=== PATIENT | female | born 1990 | race African-American/Black ===

== ENCOUNTER 2020-06-12 11:20 | Emergency (ER) | payer OTHER, SELFPAY ==
--- NOTE | ~2020-06-12 | CT_ITS ---
EXAMINATION: CT abdomen pelvis wo con DATE: 06/12/2020 12:32 INDICATION: Left flank pain. TECHNIQUE: Computed tomography (CT) of the abdomen and pelvis was performed without intravenous contr ast. Automated exposure control and iterative reconstruction technique were employed. The dose-length product was 297.12 mGy-cm. COMPARISON: None. FINDINGS: The visualized portions of the lung bases are clear without pneumonia or pleural effusion. The heart size is normal. No pericardial effusion. The liver, gallbladder, spleen, pancreas, adrenal glands, and left kidney are normal. There is a 1.7 cm cyst in right kidney. There is no urolithiasis. There are no dilated loops of bowel. The appendix is normal. There are no pathologically enlarged ly mph nodes. There is no free intraperitoneal fluid. There is thoracic dextroscoliosis and lumbar levos coliosis. There is mild thoracolumbar spondylosis. IMPRESSION: 1. No etiology for the patient's symptoms. Reviewed, dictated and finalized at location A.
[2020-06-12 11:26] VITALS: BP 121/80; PULSE 120; RESP 16; TEMP 37.1; O2SAT 94
--- NOTE | 2020-06-12 11:28 | ED.BACK ---
HPI - Back Pain/Injury General Chief Complaint: Back Pain/Injury Stated Complaint: side and back pain Time Seen by Provider: 06/12/20 11:27 Source: patient Mode of arrival: ambulatory Limitations: no limitations History of Present Illness HPI Narrative: Patient is a 30-year-old previously healthy female who presents for evaluation of back and side pain over the past 5 days. Patient reports intermittent pain that does appear worse with movement but she denies any inciting injury. Pain is sharp, stabbing in nature that originates at the left flank and radiates to the left lower abdomen. She denies any pelvic pain. She reports she is currently menstruating. She denies any other vaginal discharge. She does not believe she is and is on the Depo-Provera shot. She denies any history of kidney stones. She reports some nausea, denies fever or chills. She denies dysuria. Of note, patient does do daily heavy lifting on her place of work. Related Data Home Medications Medication Instructions Recorded Confirmed Depo-Provera Contraceptive 06/12/20 Allergies Allergy/AdvReac Type Severity Reaction Status Date / Time No Known Drug Allergies Allergy Other Verified 06/12/20 11:33 Review of Systems Review of Systems: Narrative: CONSTITUTIONAL: Denies fever, chills, or sweats. CARDIOVASCULAR: Denies chest pain, palpitations, or edema. RESPIRATORY: Denies cough or dyspnea. GASTROINTESTINAL: Reports left-sided abdominal pain, nausea GENITOURINARY: Denies dysuria, reports hematuria, currently menstruating SKIN: Denies rash or itching. MUSCULOSKELETAL: Denies back pain, joint pain, or myalgia. NEUROLOGIC: Denies headache, numbness, or weakness. [facility]LY [facility] Past Medical History Medical History (Updated 06/12/20 @ 13:33 by Anisa Nelson MD) No pertinent past medical history Surgical History Surgical History (Updated 06/12/20 @ 11:41 by Anisa Nelson MD) No pertinent past surgical history Social History Social History (Updated 06/12/20 @ 11:42 by Anisa Nelson MD) Smoking status: Current every day smoker Tobacco type: cigarettes Alcohol intake: current Alcohol use details: Social, rarely Substance use: never Gender identity (if verbalized by the patient): Female Exam Narrative: Exam Narrative: GENERAL: Awake, alert, conversant HEAD: Normocephalic, atraumatic. EYES: PERRLA and EOMI. ENT: Nares clear, no rhinorrhea or epistaxis. Mucous membranes moist. NECK: Supple. CHEST: No respiratory distress, breathing even and non labored HEART: Regular rate, sinus rhythm ABDOMEN:Non distended, tender in the left upper quadrant, left flank tenderness, mildly reproduces pain, no midline lumbar tenderness, no thoracic tenderness EXTREMITIES: Normal range of motion. No edema. SKIN: Warm, dry, no rash. NEURO:No focal deficits. Alert and oriented x3 Course Vital Signs Vital signs: Vital Signs Temperature 37.1 C 06/12/20 11:26 Pulse Rate 120 H 06/12/20 11:26 Respiratory Rate 16 06/12/20 11:26 Blood Pressure 121/80 06/12/20 11:26 Pulse Oximetry 94 06/12/20 11:26 Temperature 37.1 C 06/12/20 11:26 Pulse Rate 86 06/12/20 12:44 Respiratory Rate 18 06/12/20 12:44 Blood Pressure 103/65 06/12/20 12:44 Pulse Oximetry 98 06/12/20 12:44 MDM - Back Pain/Injury MDM Narrative Medical decision making narrative: Pt presented for left flank pain, seems more musculoskeletal given worse with movement. Pt with evidence of UTI. Given flank pain, will treat with antibiotic dose. Pt technically meets sepsis criteria given leukocytosis, wbc count mildly elevated and nidus of infection. No sign of severe sepsis or septic shock. No lactic acidosis. Patient vital signs much improved after IV fluids, first dose of antibiotics. She is tolerating oral intake, hemodynamically stable, I think we can successfully discharge this patient home with trial of outpatient medication. Patient was advi
[2020-06-12 11:51] LABS: Basophils Percent Auto 0.2 % (0.2-1.2); Eosinophils Percent Auto 0.2 % (0-4.4); Hematocrit 36.8 % (37.0-47.0); Hemoglobin 12.9 g/dL (12.0-15.0); Immature Granulocyte Absolute 0.04 K/mm3 (0.00-0.031); Immature Granulocyte Percent A 0.4 % (0-0.5); Lymphocytes Absolute Auto 1.36 K/mm3 (0.9-3.2); Lymphocytes Percent Auto 13.1 % (18.3-44.2); Mean Corpuscular HGB Conc 35.1 g/dl (32-36); Mean Corpuscular Hemoglobin 30.1 pg (26-34); Mean Platelet Volume 9.8 fl (7.4-10.4); Monocytes Absolute Auto 0.8 K/mm3 (0.1-0.6); Monocytes Percent Auto 7.2 % (2.6-8.5); Neutrophils Absolute Auto 8.2 K/mm3 (1.3-6.7); Neutrophils Percent Auto 78.9 % (45.5-73.1); Platelet Count Result 299 k/mm3 (150-375); Red Blood Count 4.28 M/mm3 (4.2-5.4); Red Cell Distribution Width 12.5 % (11.5-14.5); White Blood Count 10.4 K/mm3 (4.5-10.0)
[2020-06-12] MEDS: SODIUM CHLORIDE 0.9% IV 1,000 ML 999 ML IV CONT ×2 (11:54→13:02)
[2020-06-12] MEDS: ONDANSETRON INJ 4 MG/2 ML VIAL IV PUSH (11:54)
[2020-06-12 11:56] LABS: Add Urine Microscopic? YES; Appearance Urine Cloudy (Clear); Bacteria Urine Trace /hpf; Bilirubin Urine Negative (Negative); Blood Urine 3+ (Negative); Color Urine Yellow (Yellow); Glucose Urine UA Negative (Negative); Ketones Urine Negative (Negative); Leukocyte Esterase Ur 3+ LEU/UL (Negative); Nitrate Urine Negative (Negative); Protein Urine 1+ mg/dL (Negative); Squamous Epithelial Cell Urine Many /hpf (Few); Urobilinogen Urine Negative mg/dL (<2.0); WBC Urine >75 /hpf
[2020-06-12] MEDS: MORPHINE SULFATE (*CRX) 4 MG/ML INJ IV PUSH (11:56)
[2020-06-12 12:03] LABS: Anion Gap 7 mmol/L (8-16); Blood Urea Nitrogen 11 mg/dL (7-17); Calcium 9.3 mg/dL (8.4-10.2); Carbon Dioxide 30 mmol/L (22-30); Chloride 103 mmol/L (98-107); Estimated CRCL calculation 68 ml/min; Estimated Glomerular Filt Rate > 60; Glucose 78 mg/dL (65-105); Potassium 3.6 mmol/L (3.4-5.0); Sodium 140 mmol/L (137-145)
[2020-06-12 12:44] VITALS: BP 103/65; PULSE 86; RESP 18; O2SAT 98
[2020-06-12 13:03] LABS: Alanine Aminotransferase 23 U/L (4-35); Albumin Level 4.1 g/dL (3.5-5.1); Alkaline Phosphatase 82 U/L (38-126); Anion Gap 8 mmol/L (8-16); Aspartate Amino Transferase 27 U/L (14-36); Bilirubin,Total 0.7 mg/dL (0.2-1.3); Blood Urea Nitrogen 12 mg/dL (7-17); Calcium 9.4 mg/dL (8.4-10.2); Carbon Dioxide 28 mmol/L (22-30); Chloride 103 mmol/L (98-107); Estimated CRCL calculation 68 ml/min; Estimated Glomerular Filt Rate > 60; Glucose 79 mg/dL (65-105); Lipase 31 U/L (23-300); Potassium 3.6 mmol/L (3.4-5.0); Sodium 139 mmol/L (137-145)
[2020-06-12 13:29] LABS: Lactic Acid Reflex 0.6 mmol/L (0.7-2.1)
[2020-06-12 13:44] VITALS: BP 128/81; PULSE 74; RESP 18; TEMP 36.7; O2SAT 99
== END 2020-06-12 13:45 | disposition home or self-care (01) ==
PROVIDERS: Emergency Provider Emergency Medicine
DX: N12 Tubulo-interstitial nephritis, not specified as acute or chronic (principal); M54.5 Low back pain; F17.210 Nicotine dependence, cigarettes, uncomplicated
CPT/HCPCS: 36415; 74176; 80048; 80053; 81001; 81025; 83605; 83690; 85025; 87077; 87086; 87088; 87186; 96361; 96365; 96375; 99284; J0131; J0696; J2270; J2405; J7030